=== PATIENT | female | born 1990 | race Caucasian/White ===

== ENCOUNTER → 2020-01-07 | Outpatient (CLI) | payer BC | LOC: M.MRI 11:18 | PROVIDERS: ATTEND Family Medicine | DX: M48.02 Spinal stenosis, cervical region (principal) ==

== ENCOUNTER 2020-02-06 17:31 | Emergency (ER) | payer BC ==
[~2020-02-06] VITALS: Ht 160 cm; Wt 59.0 kg
[2020-02-06] MEDS ORDERED: BENTYL 20 MG TA20 M1 PO ×2 (17:43→19:31)
[2020-02-06] MEDS ORDERED: PHENTERMINE H37.5 MG PO (17:44)
[2020-02-06 17:45] LABS: URINE BILIRUBIN NEGATIVE (Negative); URINE BLOOD NEGATIVE (Negative); URINE CLARITY CLEAR; URINE COLOR YELLOW; URINE GLUCOSE-RANDOM NEGATIVE (Negative); URINE KETONES NEGATIVE (Negative); URINE LEUKOCYTES-REFLEX NEGATIVE (Negative); URINE NITRITE-REFLEX NEGATIVE (Negative); URINE PROTEIN NEGATIVE (Negative); URINE UROBILINOGEN 0.2 E.U./dl (0.2-1.0)
[2020-02-06 17:54] LABS: ABSOLUTE BASOPHILS 0.1 thou/uL (0.0-0.2); ABSOLUTE EOSINOPHILS 0.1 thou/uL (0.0-0.7); ABSOLUTE LYMPHOCYTES 2.4 thou/uL (0.8-5.3); ABSOLUTE MONOCYTES 0.4 thou/uL (0.0-1.2); ABSOLUTE NEUTROPHILS 4.5 thou/uL (1.6-8.1); BASOPHILS 0.7 %; EOSINOPHILS 1.1 %; HEMOGLOBIN 13.3 gm/dL (12.0-15.0); LYMPHOCYTES 32.6 %; MCH 29.2 pg (26.0-34.0); MCV 85.7 fL (80.0-100.0); MONOCYTES 5.3 %; MPV 7.7 fl. (7.2-11.1); NUCLEATED RBCS 0 /100WBC; PLATELET COUNT* 287 thou/uL (150-400); POLYS 60.3 %; RBC 4.55 mil/uL (4.20-5.00); RDW-CV 13.1 % (10.5-14.5); WBC 7.5 thou/uL (4.0-11.0)
[2020-02-06 18:03] LABS: CALCIUM 8.7 mg/dL (8.5-10.1); CREATININE 0.7 mg/dL (0.6-1.3)
[2020-02-06 18:07] LABS: ALBUMIN 4.2 g/dL (3.4-5.0); TOTAL BILIRUBIN 0.4 mg/dL (<0.1-1.0); TOTAL PROTEIN 7.6 g/dL (6.4-8.2)
[2020-02-06] MEDS ORDERED: NORCO 5-325 TA1 EAC2 PO (19:20)
[2020-02-06] MEDS ORDERED: OMEPRAZOLE 20 M20 M1 PO (19:20)
[2020-02-06] MEDS ORDERED: PEPCID20 MG PO (19:20)
[2020-02-06 19:32] VITALS: BP 125/89
== END 2020-02-06 19:33 | disposition home or self-care (01) ==
LOC: M.ERS 17:31
PROVIDERS: Physician Assistant
DX: K59.00 Constipation, unspecified (principal); N83.12 Corpus luteum cyst of left ovary; K76.9 Liver disease, unspecified; Z88.1 Allergy status to other antibiotic agents

== ENCOUNTER → 2020-02-19 | Outpatient (CLI) | payer BC ==
[~2020-02-19] MED LIST: BENTYL 20 MG TA20 M1 PO; NORCO 5-325 TA1 EAC2 PO; OMEPRAZOLE 20 M20 M1 PO; PEPCID20 MG PO; PHENTERMINE H37.5 MG PO
== END ==
LOC: M.ULTRA 02-11 14:28
PROVIDERS: ATTEND Family Medicine
DX: K76.89 Other specified diseases of liver (principal); N83.202 Unspecified ovarian cyst, left side; D18.09 Hemangioma of other sites; K76.9 Liver disease, unspecified

== ENCOUNTER → 2020-03-02 | Outpatient (CLI) | payer BC | LOC: M.NUC 07:45 | PROVIDERS: ATTEND Internal Medicine Gastroenterology | DX: R10.13 Epigastric pain (principal) ==